=== PATIENT | female | born 1965 ===

== ENCOUNTER 2024-10-03 10:00 | Inpatient (IN) ==
[~2024-10-03 10:00] MED LIST: NS 0.45% 1000 ml BAG 1,000 ML IV SCH; Naloxone 0.4 mg VIAL 0.4 mg/ml 1 ml VIAL IV PRN; Ondansetron 4 mg VIAL 2 MG/ML 2 ml VIAL IV PRN
[2024-10-03] MEDS ORDERED: Heparin 5000 UNITS/ML 1 mL VIAL ONE (11:22)
[2024-10-03] MEDS ORDERED: Scopolamine 1 mg/72hr PATCH ONE (11:22)
[2024-10-03] MEDS ORDERED: Clindamycin 900 MG/50 **NS BAG 900 MG/50 ML BAG ONE (11:22)
[2024-10-03] MEDS: Buffered Lidocaine 1% SYRIN 1 ml INTRADERM ONE (11:30)
[2024-10-03] MEDS: Lactated Ringers 1000 ml BAG 1,000 ML IV SCH ×2 (11:31→20:26)
[2024-10-03] MEDS: Scopolamine 1 mg/72hr PATCH TRANSDERM ONE (11:31)
[2024-10-03 11:35] LABS: Rapid COVID-19 Molecular Undetected (Undetected)
[2024-10-03] MEDS ORDERED: fentaNYL 250 mcg/5 ml 50 MCG/ML 5 ml VIAL (250 MCG) ONE (12:26)
[2024-10-03] MEDS ORDERED: Rocuronium 50 mg VIAL 10 mg/ml 5 ml VIAL (50 mg) ONE ×2 (12:26→14:42)
[2024-10-03] MEDS ORDERED: Propofol 10 MG/ML 20 ML BTL ONE (12:28)
[2024-10-03] MEDS ORDERED: Dexamethasone IV 4 MG/ML VIAL 1 ml VIAL ONE (12:28)
[2024-10-03] MEDS ORDERED: Glycopyrrolate IV 0.2 MG/ML 1 ML VIAL ONE (12:28)
[2024-10-03] MEDS ORDERED: Ondansetron 4 mg VIAL 2 MG/ML 2 ml VIAL ONE (12:28)
[2024-10-03] MEDS ORDERED: Lidocaine 2% PF 5 ML VIAL ONE (12:29)
[2024-10-03] MEDS ORDERED: Midazolam 2 mg/2 ml VIAL 1 mg/ml 2 ml VIAL (2 mg) ONE (13:27)
[2024-10-03] MEDS ORDERED: Methylene Blue 1% (ANTIDOTE) 10 MG/ML 10 ML SDV VIAL IVPB ONE (13:31)
[2024-10-03] MEDS ORDERED: Bupivacaine 0.25% w/EPI 10 ML SDV ONE (13:32)
[2024-10-03] MEDS ORDERED: HYDROmorphone 0.5 MG/0.5 ML SYRINGE ONE ×2 (14:41→16:08)
[2024-10-03] MEDS ORDERED: Metoprolol Tartrate 5 mg VIAL 5 ml VIAL (1 mg/ml) ONE (15:16)
[2024-10-03] MEDS ORDERED: HYDROmorphone 1 MG/1 ML SYRINGE IV SLOW PU PRN (17:21)
[2024-10-03] MEDS ORDERED: HYDROmorphone 0.5 MG/0.5 ML SYRINGE IV SLOW PU PRN (17:21)
[2024-10-03] MEDS: fentaNYL 100 mcg/2 ml 50 MCG/ML VIAL IV PRN (17:55)
[2024-10-03] MEDS ORDERED: fentaNYL 100 mcg/2 ml 50 MCG/ML VIAL ONE (17:57)
[2024-10-03] MEDS ORDERED: Acetaminophen IV 1 GM/100ML 1,000 MG/100 ML BAG IV ONE (18:36)
[2024-10-03] MEDS: Acetaminophen IV 1 GM/100ML 1,000 MG/100 ML BAG IV PRN (18:41)
[2024-10-03] MEDS: Heparin 5000 UNITS/ML 1 mL VIAL SUBCUT SCH (20:36)
[2024-10-03] MEDS: Ondansetron 4 mg VIAL 2 MG/ML 2 ml VIAL IV PRN (20:38)
[2024-10-03] MEDS: Famotidine IV 10 MG/ML 2 ml VIAL (20 mg) IV SLOW PU SCH (20:39)
[2024-10-03] MEDS: Acetaminophen IV 1 GM/100ML 1,000 MG/100 ML BAG IV ONE (23:27)
[2024-10-04 06:09] LABS: ABS Lymphocytes 0.7 10^3/uL (1.0-4.8); ABS Monocytes 0.7 10^3/uL (0.0-0.9); ABS Neutrophils 7.6 10^3/uL (1.5-7.6); ABS Nucleated RBC 0.01 10^3/ul; Hematocrit 34.7 % (35-45); Hemoglobin 11.6 g/dL (11.5-14.3); Lymphocyte % 7.8 %; Mean Corpuscular Hemoglobin 30.6 pg (27-33); Mean Corpuscular Hgb Conc 33.4 g/dL (31-36); Mean Corpuscular Volume 91.6 fL (80-97); Mean Platelet Volume 9.3 fL (7.5-11.2); Nucleated Red Blood Cells % 0.1 %/100WBC (0.0-0.8); Platelet Count 220 10^3/uL (150-450); Red Blood Count 3.79 10^6/uL (3.63-4.92); Red Cell Distribution Width 13.2 % (12-17)
[2024-10-04 06:39] LABS: Calcium 9.1 mg/dL (8.6-10.3); Creatinine, Serum 1.14 mg/dL (0.51-0.95); Potassium 4.5 mmol/L (3.5-5.0); eGFR CKD-EPI 55.1 (>60)
[2024-10-04] MEDS: D5W 1/2 NS KCl 20 meq 1000 ml 1,000 ML IV SCH (18:07)
[2024-10-05] MEDS: HYDROcodone/ACET. 7.5/325 LIQ 15 ML UDC PO PRN (09:01)
[2024-10-05 10:36] VITALS: BP 135/77
== END 2024-10-05 13:57 | disposition home or self-care (01) | DRG 403 ==
LOC: AA 10:30 → SSU 20:12
PROVIDERS: ADMIT Surgery; ATTEND Surgery